=== PATIENT | female | born 2005 | race Caucasian/White ===

== ENCOUNTER → 2025-04-15 | Outpatient (CLI) | payer OTHER ==
[2025-04-15 15:26] LABS: Basophils # (A) 0.01 X 10*3/uL (0.00-0.10); Basophils % (A) 0.2 %; Eosinophils # (A) 0.08 X 10*3/uL (0.04-0.35); Eosinophils % (A) 1.6 %; HCT 41.0 % (37.2-46.3); HGB 13.4 g/dL (12.0-15.0); Immature Grans, Automated 0.20 %; Lymphocytes # (A) 2.11 X 10*3/uL (0.90-5.00); Lymphocytes % (A) 42.2 %; MCH 28.0 pg (27.0-32.0); MCHC 32.7 g/dL (32.0-37.0); MCV 85.8 FL (80.0-97.0); Monocytes # (A) 0.36 X 10*3/uL (0.20-1.00); Monocytes % (A) 7.2 %; NRBC Per 100 WBC 0 X 10*3/uL (0.00-0.01); Neutrophils # (A) 2.43 X 10*3/uL (1.80-7.70); Neutrophils % (A) 48.6 %; Platelet Count 264 X 10*3/uL (140-440); RBC 4.78 X 10*6/uL (4.10-5.20); RDW 13.0 % (11.5-14.5); WBC 5.00 X 10*3/uL (4.50-10.00)
[2025-04-15 15:49] LABS: ALT 14 U/L (8-44); AST 18 U/L (13-35); Albumin 4.2 g/dL (3.8-4.9); Albumin/Globulin Ratio 1.56 Ratio (1.60-3.17); Alkaline Phosphatase 65 U/L (41-126); Anion Gap 9.50 mmol/L (4.00-12.00); BUN/Creat Ratio 14.75 Ratio (12.00-20.00); Blood Urea Nitrogen 11.8 mg/dL (9.0-27.0); Calcium 8.9 mg/dL (8.7-10.3); Carbon Dioxide 25.5 mmol/L (21.6-31.8); Chloride 104 mmol/L (96-109); Cholesterol 188.00 mg/dL (0.00-200.00); Creatine Kinase 72 U/L (26-186); Ferritin 13.8 ng/mL (10.0-291.0); Globulin 2.7 g/dL (1.6-3.3); Glucose 86 mg/dL (70-110); HDL Cholesterol 68.40 mg/dL (40.00-60.00); Iron 129 UG/DL (50-170); LDL Cholesterol,Calculated 97.2 mg/dL (0.0-131.0); Magnesium 1.8 mg/dL (1.5-2.4); Potassium 4.5 mmol/L (3.5-5.5); Sodium 139 mmol/L (135-145); T4, Free (Free Thyroxine) 1.00 ng/dL (0.80-1.80); Total Iron Binding Capacity 500 UG/DL (228-460); Total Protein 6.9 g/dL (6.2-8.2); Triglycerides 112.00 mg/dL (0.00-149.00); VLDL Calculation 22.40 mg/dL (5.00-40.00); Vitamin B12 450.0 pg/mL (200.0-944.0)
== END | disposition home or self-care (01) ==
LOC: LABWHC1 08:42
PROVIDERS: ATTEND Registered Nurse
DX: Z00.00 Encounter for general adult medical examination without abnormal findings (principal); Z11.1 Encounter for screening for respiratory tuberculosis; E55.9 Vitamin D deficiency, unspecified; D50.9 Iron deficiency anemia, unspecified; R25.2 Cramp and spasm
CPT/HCPCS: 36415; 80053; 80061; 82306; 82550; 82607; 82728; 82746; 83036; 83540; 83550; 83735; 84439; 84443; 85025; 86480